=== PATIENT | male | born 1965 | race Caucasian/White ===

== ENCOUNTER 2016-11-09 15:30 | Inpatient (IN) | payer OTHER, MEDICARE ==
[~2016-11-09] VITALS: Ht 177.8 cm; Wt 51.9 kg
--- NOTE | 2016-11-09 15:38 | NUR ---
PER PT FELL IN PARKING LOT LOST BALANCE AND NOW CO L HIP PAIN, DO NOT FEEL LIKE MY LEG WILL HOLD ME. HX OF BRAIN ANEURSYM L LEG WEARS BRACE AND WEAK L ARM
--- NOTE | 2016-11-09 17:15 | ED UPPER/LOWER EXTREMITY COMPL ---
History of Present Illness General Chief Complaint: Lower Extremity Problems Stated Complaint: FALL, LEFT LEG PAIN PER PT Source: patient Exam Limitations: no limitations Vital Signs & Intake/Output Vital Signs & Intake/Output Vital Signs Date Time Temp Pulse Resp B/P Pulse O2 O2 Flow FiO2 Ox Delivery Rate 11/09 1859 94.2 87 20 107/60 94 Room Air 11/09 1539 97.7 81 20 109/76 96 Room Air Allergies Coded Allergies: Penicillins (RASH 11/09/16) carbamazepine (From TEGRETOL) (HIVES 11/09/16) phenytoin (From DILANTIN) (HIVES 11/09/16) Reconcile Medications Cholecalciferol (Vitamin D3) (Vitamin D) (Unknown Strength) TABLET (Unknown Dose) PO DAILY SUPPLEMENT (Reported) Disulfiram (Unknown Strength) TABLET (Unknown Dose) UNKNOWN (Reported) Paroxetine HCl 20 MG TABLET 1 TAB PO DAILY MENTAL HEALTH (Reported) Primidone 250 MG TABLET 1 TAB PO BID SEIZURES (Reported) Simvastatin (Simvastatin*) 40 MG TABLET 1 TAB PO QPM CHOLESTEROL (Reported) Triage Note: PER PT FELL IN PARKING LOT LOST BALANCE AND NOW CO L HIP PAIN, DO NOT FEEL LIKE MY LEG WILL HOLD ME. HX OF BRAIN ANEURSYM L LEG WEARS BRACE AND WEAK L ARM Triage Nurses Notes Reviewed? yes Onset: Abrupt Duration: constant Timing: single episode today Severity: severe Severity Numbers: 8 HPI: Patient is a 51-year-old male with a past medical history of known brain aneurysm with left-sided lower extremity dysfunction, hypertension and left hip fracture with hardware placement that was removed remotely in which patient does use a left lower leg brace when he wakes up in the morning and states that when he wakes up in the morning he uses a cane at home however usually the patient walks without assistance. Patient does state then occasion his leg becomes unstable due to intermittent pain where he is a patient at pain management who states that today while ambulating outside his leg "gave out" and felt the left lateral aspect of his hip and leg. Patient states that since he's been unable to ambulate due to pain. Denies any preceding episodes of lightheaded sensation or dizziness. Denies any head strike. Denies any neck pain back pain abdominal pain knee pain and is otherwise without complaints. No medications given prior to arrival. (MARIELLA CASTILLO,TERESA) Past History Travel History Traveled to [place] past 21 day No Medical History Any Pertinent Medical History? 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 No (TERESA HOLLIS) Review of Systems Review of Systems Constitutional: Reports: no symptoms. EENTM: Reports: no symptoms. Respiratory: Reports: no symptoms. Cardiovascular: Reports: no symptoms. Gastrointestinal/Abdominal: Reports: no symptoms. Genitourinary: Reports: no symptoms. Musculoskeletal: Reports: see HPI, joint pain. Skin: Reports: no symptoms. Neurological/Psychological: Reports: no symptoms. Hematologic/Endocrine: Reports: no symptoms. Immunological: Reports: no symptoms. All Other Systems: Reviewed and Negative (TERESA HOLILS) Physical Exam Physical Exam General Appearance: no apparent distress, alert, comfortable Peripheral Pulses: 2+ dorsalis pedis (R), 2+ dorsalis pedis (L) Neurologic/Tendon: normal sensation, responds to pain, no evidence tendon injury , no pulse deficit Skin: intact, normal color, warm/dry Comments: Well-developed well-nourished person in no acute distress HEENT: Normal EENT exam, Neck: Supple, no lymphadenopathy, normal range of motion without pain or tenderness No central spinous tenderness Back: Nontender, no CVA tenderness. No central spinous tenderness Cardiovascular: Regular rate and rhythms no murmurs rubs or gallops, normal JVP Respiratory: Chest nontender. No respiratory distress.breath sounds clear to auscultation bilaterally Abdomen: Soft, nontender nondistended, no appreciable organomegaly. Normal bowel sounds. No ascites Extremity: No edema, no calf tenderness to palpation, normal and equal pulses. Left hip normal inspection, generalized point tenderness noted, patient unable to actively straight leg raise. Left knee nontender normal inspection Left lower extremity dermatomes intact Neuro: Alert oriented x3, motor sensory normal, Skin: No appreciable rash on exposed skin, skin is warm and dry. Psych: Mood and affect is normal, memory and judgment is normal. (TERESA HOLLIS) Progress Differential Diagnosis: arterial insufficiency, compartment syndrome, contusion, dislocation, DVT, fracture, gout, septic arthritis, sprain, tendon injury Plan of Care: Orders Procedure Date/time Status Regular Diet 11/10 B Active Patient Data 11/09 2116 Active OXYGEN SETUP (GEN) 11/09 1958 Active Saline Lock 11/09 1958 Active Admit to inpatient 11/09 1958 Active Vital Signs 11/09 1958 Active Activity/Ambulation 11/09 1958 Active Code Status 11/09 1958 Active COMPREHENSIVE METABOLIC PANEL 11/09 1944 Complete CBC WITHOUT DIFFERENTIAL 11/09 1944 Complete EKG 11/09 1944 Active Laboratory Tests 11/09/16 2020: Anion Gap 8, Estimated GFR > 60, BUN/Creatinine Ratio 33.3 H, Glucose 102 H, Calcium 9.4, Total Bilirubin 0.6, AST 27, ALT 45, Alkaline Phosphatase 103, Total Protein 6.9, Albumin 3.9, Globulin 3.0, Albumin/Globulin Ratio 1.3, CBC w Diff NO MAN DIFF REQ, RBC 3.90 L, MCV 95.3 H, MCH 31.8 H, RDW 14.9 H, MPV 7.3 L, Gran % 78.0 H, Lymphocytes % 15.5 L, Monocytes % 5.4, Eosinophils % 0.8, Basophils % 0.3, Absolute Granulocytes 12.1 H, Absolute Lymphocytes 2.4, Absolute Monocytes 0.8 H, Absolute Eosinophils 0.1, Absolute Basophils 0.1, PUBS MCHC 33.4 Patient declines pain medications when offered\\ Patient was unable to move leg while in a seated position however he declined pain medications. After x-rays resulted in significant degeneration with no acute process patient then was given a Percocet for pain relief however still patient is unable to weight-bear because of significant left hip pain. Patient does have significant fall risk and which usually he ambulates with minimal assistance and now patient can not weight bear. Chest patient with case management who advised patient to obtain blood work and routine EKG in which patient will likely receive a three-day stay and most likely receive a short-term rehabilitation care. Discussed handoff with Dr. LLANOS (TERESA HOLLIS) Diagnostic Imaging: Viewed by Me: Radiology Read. Radiology Impression: no fracture Hand-Off Endorsed To: JONY LLANOS MD Endorsed Time: 1954 Pending: consult, labs Comments: PATIENT: PATUZZI,ISABELLA C III PRESENT AGE: 51 PATIENT ACCOUNT NO: [id number] : 65 LOCATION: [facility] ORDERING PHYSICIAN: TERESA CASTILLO SERVICE DATE: 11/09/16 EXAM TYPE: RAD - XRY-FEMUR, LEFT 2 VIEWS EXAMINATION: XR FEMUR, LEFT CLINICAL INFORMATION: Left hip and lateral mid femur pain. COMPARISON: None TECHNIQUE: AP and lateral views of the left femur were obtained. FINDINGS: No acute fracture or dislocation. There is a chronic deformity at the left hip with severe flattening and deformity of the left femoral head. There is superior subluxation of the femur in relation to the acetabulum with subchondral sclerosis both at the remaining femoral head and superior acetabulum. There is loss of the joint space. Probable intra-articular bodies present. Alignment at the knee is maintained. Stool seen in the rectum. IMPRESSION: No fracture or acute malalignment. Severe degenerative changes at the left hip with deformity of the left femoral head and superior subluxation. (TERESA HOLLIS) Departure Departure Disposition: STILL A PATIENT Condition: Stable Referrals: IVETTE LARA,JORGE Esparza (PCP/Family) Departure Forms: Customer Survey General Discharge Information Admission Note Documentation of Exam: Documentation of any treatments & extenuating circumstances including Concerns Regarding Discharge (functional status, medication knowledge or non-compliance, living conditions, etc.) that warrant an admission rather than observation: ] (TERESA HOLLIS) Departure Clinical Impression Primary Impression: Fall Qualifiers: Encounter type: initial encounter Qualified Code: W19.XXXA - Unspecified fall, initial encounter Secondary Impressions: Acute hyponatremia Inability to ambulate due to hip Left hip pain Leukocytosis Qualifiers: Leukocytosis type: unspecified Qualified Code: D72.829 - Elevated white blood cell count, unspecified Admission Note Spoke With: JORGE STEELE MD PA/[employer]PRODU[employer] MAKER Co-Sign Statement Statement: ED Attending supervision documentation- x I saw and evaluated the patient. I have also reviewed all the pertinent lab results and diagnostic results. I agree with the findings and the plan of care as documented in the PA's/[employer]PRODU[employer] MAKER's documentation. [] I have reviewed the ED Record and agree with the PA's/[employer]PRODU[employer] MAKER's documentation. [] Additions or exceptions (if any) to the PAs/[employer]PRODU[employer] MAKER's note and plan are summarized below: [] (HIPONA MD,JONY)
--- NOTE | 2016-11-09 17:47 | RADIOLOGY REPORT ---
EXAMINATION: XR FEMUR, LEFT CLINICAL INFORMATION: Left hip and lateral mid femur pain. COMPARISON: None TECHNIQUE: AP and lateral views of the left femur were obtained. FINDINGS: No acute fracture or dislocation. There is a chronic deformity at the left hip with severe flattening and deformity of the left femoral head. There is superior subluxation of the femur in relation to the acetabulum with subchondral sclerosis both at the remaining femoral head and superior acetabulum. There is loss of the joint space. Probable intra-articular bodies present. Alignment at the knee is maintained. Stool seen in the rectum. IMPRESSION: No fracture or acute malalignment. Severe degenerative changes at the left hip with deformity of the left femoral head and superior subluxation.
--- NOTE | 2016-11-09 17:49 | NUR ---
PT RESTING ON STRETCHER AT THIS TIME.
--- NOTE | 2016-11-09 18:50 | NUR ---
PER PA PT TO AMBULATE WITH WALKER AND THEN BE DISCHARGED, PT ONLY HAS 1 ARM AND IS UNABLE TO AMBULATE WITH WALKER. PT USES CANE AT HOME, FAMILY WENT TO CAR TO GRAB PTS CANE SO THAT HE CAN TRY TO AMBULATE
[2016-11-09] MEDS ORDERED: SIMVASTATIN40 M1 PO (19:13)
[2016-11-09] MEDS ORDERED: PAROXETINE HCL20 M1 PO (19:13)
[2016-11-09] MEDS ORDERED: PRIMIDONE250 M1 PO (19:13)
[2016-11-09] MEDS ORDERED: VITAMIN D2000 UNI1 PO (19:14)
[2016-11-09] MEDS ORDERED: DISULFIRAM250 M1 (19:14)
--- NOTE | 2016-11-09 19:21 | NUR ---
PT MEDICATED WITH PERCOCET PER EMAR.
--- NOTE | 2016-11-09 20:22 | NUR ---
PT ,BLOOD SENT TO THE LAB SST,LAV DONE BY GRETA
[2016-11-09 20:32] LABS: ABSOLUTE BASOPHIL COUNT 0.1 /CUMM (0.0-0.2); ABSOLUTE EOSINOPHIL COUNT 0.1 /CUMM (0.0-0.7); ABSOLUTE GRANULOCYTE CT 12.1 /CUMM (1.4-6.5); ABSOLUTE LYMPH COUNT 2.4 /CUMM (1.2-3.4); ABSOLUTE MONOCYTE COUNT 0.8 /CUMM (0.10-0.60); BASOPHIL % 0.3 % (0.0-2.0); EOSINOPHIL % 0.8 % (0-5); HEMATOCRIT 37.2 % (42-52); MEAN CORPUSCULAR HGB 31.8 PG (27.0-31.0); MEAN CORPUSCULAR HGB CONC 33.4 G/DL (33.0-37.0); MEAN CORPUSCULAR VOLUME 95.3 FL (80.0-94.0); MEAN PLATELET VOLUME 7.3 FL (7.4-10.4); PLATELET COUNT 261 /CUMM (130-400); RBC DISTRIBUTION WIDTH 14.9 % (11.5-14.5); WHITE BLOOD CELL COUNT 15.5 /CUMM (4.8-10.8)
--- NOTE | 2016-11-09 21:03 | NUR ---
PT SITTING IN WHEELCHAIR IN [place]. DENIES ANY COMPLAINTS. AWAITING ADMISSION. PT PREFERS TO BE IN WHEELCHAIR DESPITE STRECHER NEXT TO HIM
--- NOTE | 2016-11-09 21:52 | NUR ---
HOUSE STAFF AT BEDSIDE
--- NOTE | 2016-11-09 22:14 | NUR ---
PT BED ASSIGNMENT 219-1
--- NOTE | 2016-11-09 22:20 | NUR ---
REPORT GIVEN TO ROSY ELLIS.
--- NOTE | 2016-11-09 22:22 | History & Physical ---
BRIANNE DUBOSE 11/09/16 2222: General Information and HPI MD Statement: I have seen and personally examined ISABELLA SUMMERS III and documented this H&P. The patient is a 51 year old M who presented with a patient stated chief complaint of fall. Source of Information: patient, family Exam Limitations: no limitations History of Present Illness: Patient is a 51-year-old male with a past medical history of known brain aneurysm with left-sided lower extremity dysfunction, hypertension, multiple scalp and brain surgeries and left hip fracture with hardware placement that was removed remotely in which patient does use a left lower leg brace came to the emergency department this evening after mechanical fall. Patient reports fall in parking lot after losing balance. He now complains left hip pain, 10 out of 10, sharp and shooting, nonradiating. Not associated with any weakness, new sensory changes, numbness or tingling sensation. Patient does state occasionally his leg becomes unstable due to intermittent pain. He States that today while ambulating outside his leg "gave out" and fell on left lateral aspect of his hip and leg. Patient states that since he is unable to ambulate due to pain. Denies any preceding episodes of lightheaded sensation or dizziness or syncopal episodes. Denies any head ache. Denies any neck pain, back pain and abdominal pain, knee pain and is otherwise without complaints. No seizures. Denied any fever, chills, chest pain, racing of heart, headache, numbness or tingling sensation, weakness or sensory changes, short of breath, nausea, vomiting, abdominal pain, change in bladder or bowel habits. Allergies/Medications Allergies: Coded Allergies: Penicillins (RASH 11/09/16) carbamazepine (From TEGRETOL) (HIVES 11/09/16) phenytoin (From DILANTIN) (HIVES 11/09/16) Home Med list Disulfiram (Antabuse) 250 MG TABLET 1 TAB PO DAILY ETOH dependence (Reported) Paroxetine HCl 20 MG TABLET 1 TAB PO DAILY MENTAL HEALTH (Reported) Pravastatin Sodium (Pravachol) 40 MG TABLET 1 TAB PO DAILY Dyslipidemia ( Reported) Primidone 250 MG TABLET 1 TAB PO BID SEIZURES (Reported) Compliance With Home Meds: GOOD Past History Travel History Traveled to [place] past 21 day No Medical History Neurological: ANUERSYM BRAIN EENT: NONE Cardiovascular: hypertension Respiratory: NONE Gastrointestinal: NONE Hepatic: NONE Renal: NONE Musculoskeletal: NONE Psychiatric: NONE Endocrine: NONE Blood Disorders: NONE Cancer(s): NONE 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 EENTM: Denies: no symptoms. Cardiovascular: Denies: chest pain, edema, palpitations, peripheral edema. Respiratory: Denies: cough, short of breath, sputum production, stridor, wheezing. GI: Denies: abdominal pain, constipation, diarrhea, nausea, bloody stool. Genitourinary: Denies: dysuria, frequency, hematuria, hesitation. Musculoskeletal: Denies: back pain, joint pain, joint swelling. Skin: Denies: no symptoms. Neurological/Psychological: Denies: anxiety, ataxia, cognitive dysfunction, confusion, depressed, dementia, emotional problems, headache, numbness, tingling, tremors, weakness. Exam & Diagnostic Data Last 24 Hrs of Vital Signs/I&O Vital Signs Date Time Temp Pulse Resp B/P Pulse O2 O2 Flow FiO2 Ox Delivery Rate 11/10 0033 98.2 91 18 95/59 98 Room Air 11/09 2214 96.9 11/09 1859 94.2 87 20 107/60 94 Room Air 11/09 1539 97.7 81 20 109/76 96 Room Air Intake & Output 11/10 0800 11/10 0000 11/09 1600 Intake Total 0 Output Total Balance 0 Intake, Oral 0 Patient 51.936 kg 72.575 kg Weight Physical Exam General Appearance Alert, Oriented X3, Cooperative, No Acute Distress Skin No Rashes, No Breakdown HEENT Atraumatic, PERRLA, EOMI, Mucous Membr. moist/pink Neck Supple, No JVD, No thryomegaly Lymphatic Axillary nl, Cervical nl Cardiovascular Regular Rate, Normal S1, Normal S2, No Murmurs Lungs Clear to Auscultation, Normal Air Movement Abdomen Normal Bowel Sounds, Soft, No Tenderness, No Hepatospenomegaly Neurological Normal Speech, Normal Tone, left lower extremity strength 3/5 and sensory changes Extremities No Clubbing, No Cyanosis, No Edema, Normal Pulses Vascular Normal Pulses Diagnostic Data EKG Results Rate 77, QTC 48, no acute ST-T wave changes, borderline T-wave abnormalities. T -wave inversions in V1 and V2 V4 Assessment/Plan Assessment: Patient is a 51-year-old male with a past medical history of known brain aneurysm with left-sided lower extremity dysfunction, hypertension, multiple scalp and brain surgeries and left hip fracture with hardware placement that was removed remotely in which patient does use a left lower leg brace came to the emergency department this evening after mechanical fall. Vital signs on admission: Temperature 97.7, pulse rate 81, respiratory rate 20, blood pressure 109/76, oxygen saturation 96% on room air. Patient had temperature of 94.2 at some point in the ED without any other complaints or symptoms, repeat temperature was 96.9. Pertinent lab on admission: WBC 15.5, platelet 261, hemoglobin 12.4, hematocrit 37.2. Sodium 130, creatinine 0.6, glucose 102, alkaline phosphatase 103, AST 27 , ALT 45, troponin negative. X-ray of femur was negative for any fracture or acute malalignment. Severe degenerative changes at the left hip with deformity of the left femoral head and superior subluxation. EKG showed accelerated junctional rhythm, rate 77, T inversion in V1, V2, V4 and V6 no EKG available in records to compare. Problem list 1. Left hip pain status post a mechanical fall 2. Abnormal EKG 3. Leukocytosis 4. Alcohol dependence 5. Hypertension 6. Seizures 7. Depression 8. Hyperlipidemia. Left hip pain status post mechanical fall Patient has past history significant for left hip fracture with hardware placement that was removed remotely in which patient does use a left lower leg brace came to the emergency department this evening after mechanical fall. Having 8 out of 10 hip pain. Relieved with pain medication in the emergency room. on exam - decreased strength in left upper and lower extremity (3 over 5). Limited activity range of motion in left upper and lower extremity which is not changed from baseline as per patient and patient's father. Normal passive range of motion in left upper and lower extremity. Normal external and internal rotation of the left hip. No tenderness on palpation and hip joint or buttocks no sign of ecchymosis/ ulcers/swelling. Normal range of motion right side. Decreased sensation left upper and lower extremity. Intact sensation right upper and lower extremity. Reflexes normal and symmetrical. Gait not assessed as patient had pain upon standing up. * Admitted to general medical floor for further management and rehabilitation placement * Monitor vitals closely * Maintain oxygen saturation above 96% * Fall precaution * X-ray negative for any fracture, will control the pain with when necessary Tylenol and Percocet. * PT evaluation * Ortho consult * Pain management * Mild to moderate pain Tylenol * Severe pain Percocet Leukocytosis Most likely reactive Will check CBC in the morning Abnormal EKG Denies any chest pain Troponin negative Repeat EKG in the morning Cardio consult Alcohol dependence Continue with the disulfiram Seizures Patient takes primidone at home Continue home medication Depression Continue home dose of paroxetine Hyperlipidemia Continue statins DVT prophylaxis - Full code Regular diet Moderate to severe pain pathway Tylenol and oxycodone As Ranked By This Provider Problem List: 1. Fall Qualifiers Encounter type: initial encounter Qualified Code: W19.XXXA - Unspecified fall, initial encounter 2. Left hip pain 3. Inability to ambulate due to hip 4. Leukocytosis Qualifiers Leukocytosis type: unspecified Qualified Code: D72.829 - Elevated white blood cell count, unspecified 5. Acute hyponatremia Core Measures/Miscellaneous Acute Coronary Syndrome ACS Diagnosis: No Cerebrovascular Accident CVA/TIA Diagnosis: No Congestive Heart Failure CHF Diagnosis: No Venous Thromboembolism VTE Risk Factors: Age > 40, Surgery, Trauma major or lower ext [facility] prophylaxis d/t: No contraindications No VTE Pharm Prophylaxis d/t: No contraindications VTE Diagnosis: No VTE Type: NONE VTE Confirmed by (Test): NONE Severe Sepsis Severe Sepsis Present: No Septic Shock Septic Shock Present: No Miscellaneous Documentation Attending Case Discussed With: RADHA HURST MD Primary Care Physician: JORGE STEELE MD Patient sees these Specialists none Level of Patient Care: General Medicine SALAZAR DYKES 11/09/16 2225: Resident Review Statement Resident Statement: examined this patient, discussed with sales management intern, discussed with family, reviewed EMR data (avail), reviewed images, amended to note Other Findings: This is a 51-year-old gentleman with past medical history significant for hypertension, brain aneurysm , traumatic brain injury, left-sided weakness and decreased sensation at baseline, history of left hip fracture with hardware placement;now walks with left lower leg brace who presents to the hospital after a fall. Per patient, he fell while he was walking in the parking lot this afternoon , he felt that his "leg gave out" he landed on his left hip, Patient denies any loss of consciousness or trauma to his head. Please see above for more details. Vital signs on admission: Temperature 97.7, pulse rate 81, respiratory rate 20, blood pressure 109/76, oxygen saturation 96% on room air. Patient had temperature of 94.2 at some point in the ED without any other complaints or symptoms, repeat temperature was 96.9. Physical exam at the time of admission: AAO3, NAD. HEENT: HNCAT, PERRLA, EOMI, moist mucous membrane. Neck: Supple, no JVD, no lymphadenopathy. CV: RRR, no murmur. Lungs: CTA BL. Abdomen: Normal bowel sounds, soft, NT, ND. Neurology exam: AAO 3, Cranial nerve III-12 intact, decreased strength in left upper and lower extremity (3 over 5). Limited activity range of motion in left upper and lower extremity which is not changed from baseline as per patient and patient's father. Normal passive range of motion in left upper and lower extremity. Normal external and internal rotation of the left hip. No tenderness on palpation and hip joint or buttocks no sign of ecchymosis/ ulcers/swelling. Normal range of motion right side. Decreased sensation left upper and lower extremity. Intact sensation right upper and lower extremity. Reflexes normal and symmetrical. Gait not assessed as patient had pain upon standing up. Extremities: No edema, pulses normal and symmetrical. Skin: No ecchymosis or ulcers. Pertinent lab on admission: WBC 15.5, platelet 261, hemoglobin 12.4, hematocrit 37.2. Sodium 130, creatinine 0.6, glucose 102, alkaline phosphatase 103, AST 27 , ALT 45, troponin negative. X-ray of femur was negative for any fracture or acute malalignment. Severe degenerative changes at the left hip with deformity of the left femoral head and superior subluxation. EKG showed accelerated junctional rhythm, rate 77, T inversion in V1, V2, V4 and V6 no EKG available in records to compare. Problems list/Plan: #left hip pain status post mechanical fall * X-ray negative for any fracture, will control the pain with when necessary Tylenol and Percocet. * PT evaluation * Ortho consult #Abnormal EKG; negative troponin negative chest pain * Will repeat EKG in the morning. 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 # Patient is full code #Case was discussed with attending, Dr. Steele agrees with the above plan. ARIS LARA,[facility] 11/10/16 0951: Attending Review Statement Attending Statement Attending MD Statement: examined this patient, discuss w/resident/PA/THREAD SPINNER, agreed w/resident/PA/THREAD SPINNER, reviewed EMR data (avail)
[2016-11-09] MEDS ORDERED: PRAVACHOL20 M2 PO (22:33)
[2016-11-09] MEDS ORDERED: ANTABUSE250 M1 PO (22:33)
[2016-11-09] MEDS ORDERED: PRAVACHOL40 M1 PO (22:34)
[2016-11-10 00:33] VITALS: BP 95/59
--- NOTE | 2016-11-10 00:42 | NUR ---
2300 PT ARRIVED FROM ER VIA WHEELCHAIR, AMBULATED TO BED WITH ASSISTANCE. PT WEARING OWN CLOTHES, STATES HE DOES NOT WANT TO CHANGE. PT DENIES SKIN BREAKDOWN, NO SKIN BREAKDOWN NOTED BY THIS RN WHEN PULLING PANTS, SLEEVES, ETC OUT OF WAY. PT C/O PAIN TO IV SITE TO LT HAND R/T SPASMS. IV REMOVED, PT REFUSING NEW IV AT THIS TIME. 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 BED ALARM IN PLACE, FALL BRACELET, RED SOCKS AND FALLING LEAF IN USE. PT EDUCATED TO REASON FOR PREVENTIONS, VERBALIZES UNDERSTANDING. WILL CONTINUE TO MONITOR.
--- NOTE | 2016-11-10 07:20 | PN- Housestaff ---
Subjective Follow-up For: left hip discomfort post a mechanical fall. left-sided weakness 2/2 brain aneurysm Subjective: Afebrile, alert and oriented, complaining of left hip pain. No acute overnight events reported. Patient father was in his bed side. Patient denies any other current complaints. Review of Systems Constitutional: Reports: see HPI. Objective Last 24 Hrs of Vital Signs/I&O Vital Signs Date Time Temp Pulse Resp B/P Pulse O2 O2 Flow FiO2 Ox Delivery Rate 11/10 1349 98.7 94 20 126/70 95 Room Air 11/10 1044 Room Air Room Air 11/10 0747 98.4 88 20 99/71 93 Room Air 11/10 0033 98.2 91 18 95/59 98 Room Air 11/09 2214 96.9 11/09 1859 94.2 87 20 107/60 94 Room Air Intake & Output 11/10 1600 11/10 0800 11/10 0000 Intake Total 0 Output Total 850 Balance -850 0 Intake, Oral 0 Output, Urine 850 Patient 51.936 kg Weight Physical Exam General Appearance: Alert, Cooperative, No Acute Distress Skin: No Rashes, No Breakdown, No Significant Lesion HEENT: Atraumatic, PERRLA, EOMI, Mucous Membr. moist/pink Cardiovascular: Regular Rate, Normal S1, Normal S2, No Murmurs Lungs: Clear to Auscultation, Normal Air Movement Abdomen: Normal Bowel Sounds, Soft, No Tenderness Neurological: Normal Speech, strength is 5/5 on the right side, but 3/5 on the left side Extremities: No Clubbing, No Cyanosis, No Edema Current Medications: Current Medications Sig/Samm Start time Last Medication Dose Route Stop Time Status Admin Acetaminophen 650 MG Q8P PRN 11/09 2230 AC PO Disulfiram 250 MG DAILY 11/10 1000 AC 11/10 PO 1042 Oxycodone/ 1 TAB Q6 PRN 11/09 223 AC 11/10 Acetaminophen PO 1343 Oxycodone/ 0 .STK-MED ONE 11/09 190 DC Acetaminophen PO Oxycodone/ 1 TAB ONCE ONE 11/09 1900 DC 11/09 Acetaminophen PO 11/09 190 1919 Paroxetine HCl 20 MG DAILY 11/10 1000 AC 11/10 PO 1041 Patient Medication 1 ED .STK-MED ONE 11/10 1339 DC Teaching ED 11/10 1340 Pravastatin Sodium 40 MG 1700 11/10 1700 AC 11/10 PO 1729 Primidone 250 MG BID 11/09 2330 AC 11/10 PO 1042 Last 24 Hrs of Lab/Toby Results Last 24 Hrs of Labs/Mics: Laboratory Tests 11/10/16 0758: Anion Gap 5, Estimated GFR > 60, BUN/Creatinine Ratio 25.0, CBC w Diff NO MAN DIFF REQ, RBC 3.81 L, MCV 95.8 H, MCH 32.0 H, RDW 14.9 H, MPV 7.3 L, Gran % 61.0, Lymphocytes % 26.4, Monocytes % 9.3, Eosinophils % 2.6, Basophils % 0.7, Absolute Granulocytes 4.8, Absolute Lymphocytes 2.1, Absolute Monocytes 0.7 H, Absolute Eosinophils 0.2, Absolute Basophils 0.1, PUBS MCHC 33.4 11/09/16 2020: Anion Gap 8, Estimated GFR > 60, BUN/Creatinine Ratio 33.3 H, Glucose 102 H, Calcium 9.4, Total Bilirubin 0.6, AST 27, ALT 45, Alkaline Phosphatase 103, Troponin I < 0.01, Total Protein 6.9, Albumin 3.9, Globulin 3.0, Albumin/ Globulin Ratio 1.3, CBC w Diff NO MAN DIFF REQ, RBC 3.90 L, MCV 95.3 H, MCH 31.8 H, RDW 14.9 H, MPV 7.3 L, Gran % 78.0 H, Lymphocytes % 15.5 L, Monocytes % 5.4, Eosinophils % 0.8, Basophils % 0.3, Absolute Granulocytes 12.1 H, Absolute Lymphocytes 2.4, Absolute Monocytes 0.8 H, Absolute Eosinophils 0.1 , Absolute Basophils 0.1, PUBS MCHC 33.4 Assessment/Plan Assessment: This is a 55-year-old male with a history of brain aneurysm with the left side nabil-plegia, hypertension. He also has a history of left hip fracture status post surgical intervention. Presented because of left sided hip pain post a mechanical fall. X-ray was negative for any fractures. * 1 tablet every 6 when necessary when necessary * Acetaminophen 650 mg every 8 when necessary * PT evaluation * Continue home medication include statin, Paxil, disulfiram and primidone. Regular diet Full code Problem List: 1. Fall 2. Left hip pain 3. Leukocytosis Pain Ratin Pain Location: left hip Pain Goal: Remain pain free Pain Plan: See assessment and plan Tomorrow's Labs & Rationales: CBC and BEP
[2016-11-10 07:47] VITALS: BP 99/71
[2016-11-10 08:48] LABS: ABSOLUTE BASOPHIL COUNT 0.1 /CUMM (0.0-0.2); ABSOLUTE EOSINOPHIL COUNT 0.2 /CUMM (0.0-0.7); ABSOLUTE GRANULOCYTE CT 4.8 /CUMM (1.4-6.5); ABSOLUTE LYMPH COUNT 2.1 /CUMM (1.2-3.4); ABSOLUTE MONOCYTE COUNT 0.7 /CUMM (0.10-0.60); BASOPHIL % 0.7 % (0.0-2.0); EOSINOPHIL % 2.6 % (0-5); HEMATOCRIT 36.5 % (42-52); MEAN CORPUSCULAR HGB CONC 33.4 G/DL (33.0-37.0); MEAN CORPUSCULAR VOLUME 95.8 FL (80.0-94.0); MEAN PLATELET VOLUME 7.3 FL (7.4-10.4); PLATELET COUNT 250 /CUMM (130-400); RBC DISTRIBUTION WIDTH 14.9 % (11.5-14.5); RED BLOOD CELL CT 3.81 /CUMM (4.70-6.10); WHITE BLOOD CELL COUNT 7.8 /CUMM (4.8-10.8)
--- NOTE | 2016-11-10 09:47 | Admission Certification ---
Admission Certification Certification Statement - As attending physician, I certify that at the time of - admission, based on clinical presentation, severity of - symptoms, need for further diagnostic testing and - therapeutic interventions, and risk of adverse outcomes - without in-hospital treatment, in my clinical assessment, - this patient requires an acute hospital stay for a minimum - of two nights or longer. I have also considered psychsocial - factors such as support system, advanced age, financial - issues, cognitive issues, and failed out-patient treatments, - past re-admission history, safety of patient, and lack of - compliance as applicable. Specific rationale supporting this admission is: Mechanical fall and left hip pain
--- NOTE | 2016-11-10 09:51 | PN- Att Addend ---
Attending Addendum Attending Brief Note Patient complains of left hip discomfort and left-sided weakness that is chronic General Appearance: Alert, No Acute Distress Skin: Grossly normal HEENT: PEERLA Neck: Supple, No JVD Cardiovascular: Regular Rate, Normal S1, Normal S2, No Murmurs Lungs: Clear to Auscultation, Normal Air Movement Abdomen: Normal Bowel Sounds, Soft, No Tenderness Neurological: Left-sided weakness Extremities: No Clubbing, No Cyanosis, No Edema Vascular: Normal Pulses Assessment 51-year-old with history of brain aneurysm with left-sided weakness, hypertension and history of left hip fracture with surgery presenting after a mechanical fall. X-ray negative for fracture, except for subluxation. Conservative treatment with pain meds and physical therapy for possible placement to rehabilitation. EKG reviewed and was within normal limits. Plan Continue pain meds Continue home meds No need for cardiology evaluation PT evaluation DVT prophylaxis Current Medications Sig/Samm Start time Last Medication Dose Route Stop Time Status Admin Acetaminophen 650 MG Q8P PRN 11/09 2230 AC PO Disulfiram 250 MG DAILY 11/10 1000 AC PO Oxycodone/ 1 TAB Q6 PRN 11/09 2230 AC 11/10 Acetaminophen PO 0002 Oxycodone/ 0 .STK-MED ONE 11/09 1907 DC Acetaminophen PO Oxycodone/ 1 TAB ONCE ONE 11/09 190 DC 11/09 Acetaminophen PO 11/09 1901 1919 Paroxetine HCl 20 MG DAILY 11/10 1000 AC PO Pravastatin Sodium 40 MG 1700 11/10 1700 AC PO Primidone 250 MG BID 11/09 2330 AC 11/10 PO 0020 Laboratory Tests 11/10 Chemistry Sodium (137 - 145 mmol/L) 134 L 130 L Potassium (3.5 - 5.1 mmol/L) 4.5 4.3 Chloride (98 - 107 mmol/L) 103 98 Carbon Dioxide (22 - 30 mmol/L) 26 24 Anion Gap (5 - 16) 5 8 BUN (9 - 20 mg/dL) 15 20 Creatinine (0.7 - 1.2 mg/dL) 0.6 L 0.6 L Estimated GFR (>60 ml/min) > 60 > 60 BUN/Creatinine Ratio (7 - 25 %) 25.0 33.3 H Glucose (65 - 99 mg/dL) 102 H Calcium (8.4 - 10.2 mg/dL) 9.4 Total Bilirubin (0.2 - 1.3 mg/dL) 0.6 AST (17 - 59 U/L) 27 ALT (21 - 72 U/L) 45 Alkaline Phosphatase (< 127 U/L) 103 Troponin I (<0.11 ng/ml) < 0.01 Total Protein (6.3 - 8.2 g/dL) 6.9 Albumin (3.5 - 5.0 g/dL) 3.9 Globulin (1.9 - 4.2 gm/dL) 3.0 Albumin/Globulin Ratio (1.1 - 2.2 %) 1.3 Hematology CBC w Diff NO MAN DIFF REQ NO MAN DIFF REQ WBC (4.8 - 10.8 /CUMM) 7.8 15.5 H RBC (4.70 - 6.10 /CUMM) 3.81 L 3.90 L Hgb (14.0 - 18.0 G/DL) 12.2 L 12.4 L Hct (42 - 52 %) 36.5 L 37.2 L MCV (80.0 - 94.0 FL) 95.8 H 95.3 H MCH (27.0 - 31.0 PG) 32.0 H 31.8 H RDW (11.5 - 14.5 %) 14.9 H 14.9 H Plt Count (130 - 400 /CUMM) 250 261 MPV (7.4 - 10.4 FL) 7.3 L 7.3 L Gran % (42.2 - 75.2 %) 61.0 78.0 H Lymphocytes % (20.5 - 51.1 %) 26.4 15.5 L Monocytes % (1.7 - 9.3 %) 9.3 5.4 Eosinophils % (0 - 5 %) 2.6 0.8 Basophils % (0.0 - 2.0 %) 0.7 0.3 Absolute Granulocytes (1.4 - 6.5 /CUMM) 4.8 12.1 H Absolute Lymphocytes (1.2 - 3.4 /CUMM) 2.1 2.4 Absolute Monocytes (0.10 - 0.60 /CUMM) 0.7 H 0.8 H Absolute Eosinophils (0.0 - 0.7 /CUMM) 0.2 0.1 Absolute Basophils (0.0 - 0.2 /CUMM) 0.1 0.1 PUBS MCHC (33.0 - 37.0 G/DL) 33.4 33.4 Vital Signs Date Time Temp Pulse Resp B/P Pulse O2 O2 Flow FiO2 Ox Delivery Rate 11/10 0747 98.4 88 20 99/71 93 Room Air 11/10 0033 98.2 91 18 95/59 98 Room Air 11/09 2214 96.9 11/09 1859 94.2 87 20 107/60 94 Room Air 11/09 1539 97.7 81 20 109/76 96 Room Air
[2016-11-10 13:49] VITALS: BP 126/70
--- NOTE | 2016-11-10 16:36 | Discharge Summary ---
Visit Information Visit Dates Admission Date: 11/09/16 Discharge Date: 11/13/16 Hospital Course Course Attending Physician: RADHA HURST MD Primary Care Physician: JORGE STEELE MD Hospital Course: Patient is a 51-year-old male with a past medical history of known brain aneurysm with left-sided lower extremity dysfunction, hypertension, multiple scalp and brain surgeries and left hip fracture with hardware placement that was removed remotely in which patient does use a left lower leg brace came to the emergency department this evening after mechanical fall. Patient reports fall in parking lot after losing balance. He now complains left hip pain, 10 out of 10, sharp and shooting, nonradiating. Not associated with any weakness, new sensory changes, numbness or tingling sensation. He was admitted on general medical floor. She was evaluated by orthopedic surgery and according to them he can work with physical therapy to try to get him to ambulate safely he may have to use a platform-type walker just to use the right upper extremity for more balance control he can follow up with orthopedics and in particular Julius Campos MD as an outpatient. Patient will be discharged to short-term rehabilitation where he will work with physical therapy to get his strength back and later on will follow up with Dr. Julius Campos MD as outpatient for future planning of hip replacement. PATIENT COmplained of left wrist discomfort had xrays which showed nondisplaced left distal radius fracture splint applied will maintain for 6 weeks Patient also found to have moderate malnutrition evaluated by portfolio consultant. Patient was found to have hyponatremic on admission that was progressively getting better with conservative management Complications: None Allergies: Coded Allergies: Penicillins (RASH 11/09/16) carbamazepine (From TEGRETOL) (HIVES 11/09/16) phenytoin (From DILANTIN) (HIVES 11/09/16) Pertinent Lab Results: SERVICE DATE: 11/09/16 EXAM TYPE: RAD - XRY-FEMUR, LEFT 2 VIEWS EXAMINATION: XR FEMUR, LEFT CLINICAL INFORMATION: Left hip and lateral mid femur pain. COMPARISON: None TECHNIQUE: AP and lateral views of the left femur were obtained. FINDINGS: No acute fracture or dislocation. There is a chronic deformity at the left hip with severe flattening and deformity of the left femoral head. There is superior subluxation of the femur in relation to the acetabulum with subchondral sclerosis both at the remaining femoral head and superior acetabulum. There is loss of the joint space. Probable intra-articular bodies present. Alignment at the knee is maintained. Stool seen in the rectum. IMPRESSION: No fracture or acute malalignment. Severe degenerative changes at the left hip with deformity of the left femoral head and superior subluxation. Disposition Summary Disposition Principal Diagnosis: Impacted distal radius fracture left hip discomfort post a mechanical fall. Additional Diagnosis: left-sided weakness 2/2 brain aneurysm Discharge Disposition: SNF Discharge Instructions General Discharge Information Code Status: Full Code Patient's Diet: Heart healthy diet Patient's Activity: As tolerated with assistance Follow-Up Instructions/Appts: Please follow-up with your primary care physician in one week of discharge Please follow-up with orthopedic Julius Campos MD as an outpatient after 1-2 weeks of discharge use a platform-type walker just to use the right upper extremity for more balance control Medications at Discharge Discharge Medications: Continue taking these medications: Primidone (Primidone) 250 MG TABLET 1 Tablet ORAL TWICE DAILY Qty = 60 Paroxetine HCl (Paroxetine HCl) 20 MG TABLET 1 Tablet ORAL DAILY Qty = 30 Disulfiram (Antabuse) 250 MG TABLET 1 Tablet ORAL DAILY Pravastatin Sodium (Pravachol) 40 MG TABLET 1 Tablet ORAL DAILY Start taking the following new medications: Oxycodone HCl/Acetaminophen (Percocet 5-325 MG Tablet) 5 MG-325 MG TABLET 1 Tablet ORAL EVERY SIX HOURS NEEDED as needed for PAIN SCALE 4-6 ( MODERATE) Days = 14 No Refills Acetaminophen (Tylenol) 325 MG TABLET 650 Milligram ORAL EVERY 8 HOURS NEEDED as needed for mild/mod pain Qty = 30 No Refills Copies To: IVETTE LARA,JORGE Hill MD Review Statement Documenting Attending: JORGE STEELE MD
[2016-11-10 22:39] VITALS: BP 110/69
[2016-11-11 07:11] VITALS: BP 98/72
[2016-11-11 08:22] LABS: ABSOLUTE BASOPHIL COUNT 0.1 /CUMM (0.0-0.2); ABSOLUTE EOSINOPHIL COUNT 0.2 /CUMM (0.0-0.7); ABSOLUTE GRANULOCYTE CT 4.1 /CUMM (1.4-6.5); ABSOLUTE LYMPH COUNT 2.3 /CUMM (1.2-3.4); ABSOLUTE MONOCYTE COUNT 0.6 /CUMM (0.10-0.60); BASOPHIL % 0.9 % (0.0-2.0); EOSINOPHIL % 2.5 % (0-5); GRANULOCYTE % 56.3 % (42.2-75.2); HEMATOCRIT 34.7 % (42-52); MEAN CORPUSCULAR HGB 31.8 PG (27.0-31.0); MEAN CORPUSCULAR HGB CONC 33.3 G/DL (33.0-37.0); MEAN CORPUSCULAR VOLUME 95.6 FL (80.0-94.0); MEAN PLATELET VOLUME 7.4 FL (7.4-10.4); PLATELET COUNT 252 /CUMM (130-400); RBC DISTRIBUTION WIDTH 14.4 % (11.5-14.5); RED BLOOD CELL CT 3.63 /CUMM (4.70-6.10); WHITE BLOOD CELL COUNT 7.3 /CUMM (4.8-10.8)
--- NOTE | 2016-11-11 08:47 | PN- Housestaff ---
Subjective Follow-up For: significant dysplasia and [id number] arthritic changes of the left hip Mildly impacted fracture of the distal radial metaphysis Complaints: pain in the left forearm and the wrist Subjective: Patient is seen and examined at the bedside. He was complaining of pain in the forearm and the wrist. Review of Systems Constitutional: Reports: weakness. Cardiovascular: Denies: no symptoms. Respiratory: Denies: no symptoms. Musculoskeletal: Reports: joint pain, joint swelling. Skin: Reports: erythema. Neurological/Psychological: Reports: depressed, unable to move lower ext, unable to move upper ext. Objective Last 24 Hrs of Vital Signs/I&O Vital Signs Date Time Temp Pulse Resp B/P Pulse O2 O2 Flow FiO2 Ox Delivery Rate 11/11 1536 97.8 96 20 104/60 95 Room Air 11/11 0711 97.7 88 20 98/72 94 Room Air 11/10 223 99.0 92 20 110/69 95 Room Air Intake & Output 11/11 1600 11/11 0800 11/11 0000 Intake Total 100 300 Output Total 440 1100 400 Balance -440 -1000 -100 Intake, Oral 100 300 Output, Urine 440 1100 400 Patient 51.936 kg Weight Physical Exam General Appearance: Alert, Oriented X3, Cooperative, No Acute Distress Skin: area of swelling and erythema on the left forearm Cardiovascular: Normal S1, Normal S2 Lungs: Clear to Auscultation, Normal Air Movement Abdomen: Soft, No Tenderness Neurological: 3/5 strength in left upper and lower limb Extremities: No Clubbing, No Cyanosis, No Edema Vascular: Normal Pulses Current Medications: Current Medications Sig/Samm Start time Last Medication Dose Route Stop Time Status Admin Acetaminophen 650 MG Q8P PRN 11/09 2230 AC 11/11 PO 1700 Disulfiram 250 MG DAILY 11/10 1000 AC 11/11 PO 1043 Oxycodone/ 1 TAB Q6P PRN 11/11 1100 AC 11/11 Acetaminophen PO 1530 Oxycodone/ 1 TAB Q6 PRN 11/09 2230 DC 11/10 Acetaminophen PO 2047 Paroxetine HCl 20 MG DAILY 11/10 1000 AC 11/11 PO 1042 Pravastatin Sodium 40 MG 1700 11/10 1700 AC 11/11 PO 1656 Primidone 250 MG BID 11/09 2330 AC 11/11 PO 1920 Last 24 Hrs of Lab/Toby Results Last 24 Hrs of Labs/Mics: Laboratory Tests 11/11/16 0640: Anion Gap 7, Estimated GFR > 60, BUN/Creatinine Ratio 21.7, CBC w Diff NO MAN DIFF REQ, RBC 3.63 L, MCV 95.6 H, MCH 31.8 H, RDW 14.4, MPV 7.4, Gran % 56.3, Lymphocytes % 31.7, Monocytes % 8.6, Eosinophils % 2.5, Basophils % 0.9, Absolute Granulocytes 4.1, Absolute Lymphocytes 2.3, Absolute Monocytes 0.6, Absolute Eosinophils 0.2, Absolute Basophils 0.1, PUBS MCHC 33.3 Assessment/Plan Assessment: This is a 55-year-old male with a history of brain aneurysm with the left side nabil-plegia, hypertension. He also has a history of left hip fracture status post surgical intervention. Presented because of left sided hip pain post a mechanical fall. X-ray was negative for any fractures. Plan - significant dysplasia and [id number]-[id number] arthritic changes of the left hip * Patient may need consultation with a joint replacement specialist as an outpatient Mildly impacted fracture of the distal radial metaphysis * He was complaining of pain and swelling in the left forearm and wrist. * We ordered x-ray of forearm and wrist. It showed that he is having mildly impacted fracture of distal radial metaphysis. * We updated Dr. John and he advised to keep the wrist in a splint and he will come and evaluate it tomorrow * We will give pain medication according to the pain score * PT evaluation * Continue home medication include statin, Paxil, disulfiram and primidone. Diet - Regular diet DVT prophylaxis-ALP S/Heparin CODE STATUS -Full code Problem List: 1. Fracture of radius 2. Acquired dysplasia of left hip Pain Ratin Pain Location: Forearm and the wrist Pain Goal: Remain pain free Pain Plan: [id number]-[id number] according to the pain scale Tomorrow's Labs & Rationales: not required DVT/Prophylaxis: mechanical, pharmacological
--- NOTE | 2016-11-11 09:10 | Cons- Orthopedic ---
General Information and HPI Consulting Request Date of Consult: 11/11/16 Requested By: RADHA HURST MD Reason for Consult: Left hip pain History of Present Illness: Patient is a 51-year-old male who is status post a brain aneurysm with weakness on the left side of his body and he has recurrent falls secondary to weakness in the left upper and lower extremity. He had a recent fall and was having some pain in the left hip region. X-rays taken at [facility] in the emergency room do not show any new fractures he has [id number]-ro-[id number] left hip with deformity of the proximal femur from prior hip dysplasia. The patient states on a daily basis he gets up and ambulates for short period of time with a cane due to fact occasionally use his right upper extremity and gets around without a cane most of the rest of the day but has significant weakness on the left side. I had a long discussion with the patient today that he should set up an outpatient appointment with Dr. Cuevas WHO is a joint replacement specialist for the possibility of hip replacement on the left side. Allergies/Medications Allergies: Coded Allergies: Penicillins (RASH 11/09/16) carbamazepine (From TEGRETOL) (HIVES 11/09/16) phenytoin (From DILANTIN) (HIVES 11/09/16) Home Med List: Disulfiram (Antabuse) 250 MG TABLET 1 TAB PO DAILY ETOH dependence (Reported) Paroxetine HCl 20 MG TABLET 1 TAB PO DAILY MENTAL HEALTH (Reported) Pravastatin Sodium (Pravachol) 40 MG TABLET 1 TAB PO DAILY Dyslipidemia ( Reported) Primidone 250 MG TABLET 1 TAB PO BID SEIZURES (Reported) Past History Medical History Neurological: seizure, ANUERSYM BRAIN EENT: NONE Cardiovascular: hypertension Respiratory: NONE Gastrointestinal: NONE Hepatic: NONE Renal: NONE Musculoskeletal: NONE Psychiatric: NONE Endocrine: NONE Blood Disorders: NONE Cancer(s): NONE 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 Home Services at Home: None Smoking Status: Current Everyday Smoker ETOH Use: denies use Illicit Drug Use: denies illicit drug use Review of Systems Review of Systems: Prior ruptured cerebral aneurysm leading to left sided weakness in the upper and lower extremity. Exam & Diagnostic Data Vital Signs and I&O Vital Signs Date Time Temp Pulse Resp B/P Pulse O2 O2 Flow FiO2 Ox Delivery Rate 11/11 0711 97.7 88 20 98/72 94 Room Air 11/10 2239 99.0 92 20 110/69 95 Room Air 11/10 1349 98.7 94 20 126/70 95 Room Air 11/10 1044 Room Air Room Air Intake & Output 11/11 1600 11/11 0800 11/11 0000 11/10 1600 11/10 0800 11/10 0000 Intake Total 100 300 700 0 Output Total 1100 400 850 Balance -1000 -100 700 -850 0 Intake, Oral 100 300 700 0 Output, Urine 1100 400 850 Patient 114 lb 114 lb Weight Physical Exam: On physical exam he has about 0 to about 80 of motion at the left hip rotation is decreased secondary to the arthritic nature of his left hip. With me moving his hip through a range of motion and has very limited pain today so again proving that there is no acute new fracture. Assessment/Plan Assessment/Plan Patient is a 51-year-old male with significant dysplasia and yuyf-lp-tuwi arthritic changes of the left hip. He has secondary issues of significant left sided weakness from a ruptured cranial aneurysm in the past. He will need outside consultation with a joint replacement specialist to discuss options for this patient once discharged. He can work with physical therapy to try to get him to ambulate safely he may have to use a platform-type walker just to use the right upper extremity for more balance control he can follow up with orthopedics and in particular Julius Campos MD as an outpatient. Consult Acknowledgment - Thank you for your consult request. Attending Review Statement Attending Statement Attending Statement: examined this patient
[2016-11-11] MEDS ORDERED: TYLENOL325 M1 PO (12:22)
[2016-11-11] MEDS ORDERED: PERCOCET 5-3251 EACH PO (12:23)
--- NOTE | 2016-11-11 12:28 | Patient Discharge Instructions ---
Discharge Instructions General Discharge Information You were seen/treated for: Left hip pain Special Instructions: Please follow-up with your primary care physician in one week of discharge Please follow-up with orthopedic Julius Campos MD as an outpatient after 1-2 weeks of discharge use a platform-type walker just to use the right upper extremity for more balance control Diet Continue normal diet: Yes Recommended Diet: Heart Healthy Activity Additional ACTIVITY Info: As tolerated with assistance Acute Coronary Syndrome Inclusion Criteria At DC or during hospital stay patient has or had the following: ACS DIAGNOSIS No Discharge Core Measures Meds if any: Prescribed or Continued at Discharge Meds if any: NOT Prescribed or Continued at Discharge Congestive Heart Failure Inclusion Criteria At DC or during hospital stay patient has or had the following: CHF DIAGNOSIS No Discharge Core Measures Meds if any: Prescribed or Continued at Discharge Meds if any: NOT Prescribed or Continued at Discharge Cerebrovascular accident Inclusion Criteria At DC or during hospital stay patient has or had the following: CVA/TIA Diagnosis No Discharge Core Measures Meds if any: Prescribed or Continued at Discharge Meds if any: NOT Prescribed or Continued at Discharge Venous thromboembolism Inclusion Criteria VTE Diagnosis No VTE Type NONE VTE Confirmed by (Test) NONE Discharge Core Measures - Per Current guidelines, there needs to be overlap - treatment for the first 5 days of Warfarin therapy. - If discharged on Warfarin prior to 5 days of - overlap therapy, the patient will need to be - assessed for post discharge needs including - *Post discharge parental anticoagulation - *Warfarin and/or parental anticoagulation education - *Follow up date to check INR post discharge At least 5 days overlap therapy as Inpatient No Meds if any: Prescribed or Continued at Discharge Note: Overlap Therapy is Warfarin and Anticoagulant Meds if any: NOT Prescribed or Continued at Discharge
--- NOTE | 2016-11-11 15:18 | RADIOLOGY REPORT ---
EXAMINATION: XR FOREARM, LEFT XR WRIST, LEFT CLINICAL INFORMATION: Pain and swelling. Fall. COMPARISON: None TECHNIQUE: AP and lateral views of the left forearm were obtained. 4 views of the left wrist were obtained. FINDINGS: Mildly impacted fracture of the distal radial metaphysis is demonstrated. The fracture is transversely oriented. Diffusely decreased bone mineral density. No other fracture or dislocation is demonstrated. The elbow joint appears congruent. No widening of the distal radial ulnar joint. The carpal arcs appear maintained. IMPRESSION: Impacted distal radial metaphyseal fracture. Diffusely decreased bone mineral density. No other discrete fracture demonstrated.
[2016-11-11 15:36] VITALS: BP 104/60
--- NOTE | 2016-11-11 16:50 | NUR ---
SPOKE WITH DR AUGIAR-STATED HE WAS BEING PAGED BY CHERYL, DOES NOT KNOW WHY-I EXPLAINED XRAY RESULTS (LW FRACTURE) AND HIS CONSULT NEEDED. HE STATED HE IS OUT OF THE HOSPITAL, AND TO JUST ORDER A WRIST SPLINT AND PUT ON PATIENT. GAVE INFORMATION TO DANCING TEACHER CHERYL.
--- NOTE | 2016-11-11 18:33 | PN- Att Addend ---
Attending Addendum Attending Brief Note Covering attending note Patient sitting in the chair receiving pastoral care and plain started his arm is swollen and tender, the x-ray showed an impacted distal radial metaphyseal fracture. Will notify orthopedic doctor of this finding because he had cleared him to go to rehabilitation from the hip point of view he might need immunization of that arm before he leaves tomorrow Current Medications Sig/Samm Start time Last Medication Dose Route Stop Time Status Admin Acetaminophen 650 MG Q8P PRN 11/09 2230 AC 11/11 PO 1700 Disulfiram 250 MG DAILY 11/10 1000 AC 11/11 PO 1043 Oxycodone/ 1 TAB Q6P PRN 11/11 1100 AC 11/11 Acetaminophen PO 1530 Oxycodone/ 1 TAB Q6 PRN 11/09 2230 DC 11/10 Acetaminophen PO 2047 Paroxetine HCl 20 MG DAILY 11/10 1000 AC 11/11 PO 1042 Pravastatin Sodium 40 MG 1700 11/10 1700 AC 11/11 PO 1656 Primidone 250 MG BID 11/09 2330 AC 11/11 PO 1043 Laboratory Tests 11/11/16 0640: Anion Gap 7, Estimated GFR > 60, BUN/Creatinine Ratio 21.7, CBC w Diff NO MAN DIFF REQ, RBC 3.63 L, MCV 95.6 H, MCH 31.8 H, RDW 14.4, MPV 7.4, Gran % 56.3, Lymphocytes % 31.7, Monocytes % 8.6, Eosinophils % 2.5, Basophils % 0.9, Absolute Granulocytes 4.1, Absolute Lymphocytes 2.3, Absolute Monocytes 0.6, Absolute Eosinophils 0.2, Absolute Basophils 0.1, PUBS MCHC 33.3 Vital Signs Date Time Temp Pulse Resp B/P Pulse O2 O2 Flow FiO2 Ox Delivery Rate 11/11 1536 97.8 96 20 104/60 95 Room Air Intake & Output 11/11 1600 Intake Total Output Total 440 Balance -440 Output, Urine 440 Patient 114 lb Weight
[2016-11-11 22:12] VITALS: BP 100/70
[2016-11-12 06:44] VITALS: BP 100/76
--- NOTE | 2016-11-12 08:36 | PN- Housestaff ---
Subjective Follow-up For: Left nondisplaced radial fracture left hip discomfort post a mechanical fall. left-sided weakness 2/2 brain aneurysm Subjective: patient has left wrist pain and swelling overnight, x ray was obtained that revealed nondisplaced left distal radius fracture, a splint was applied. patient was seen and examined this morning, pain in the left hip 6/10 no weakness above baseline and no numbness. patient denied chest pian, palpitation, abdominal pain. vital signs are stable. Review of Systems Constitutional: Reports: see HPI. Objective Last 24 Hrs of Vital Signs/I&O Vital Signs Date Time Temp Pulse Resp B/P Pulse O2 O2 Flow FiO2 Ox Delivery Rate 11/12 0644 97.8 80 20 100/76 95 11/11 2212 98.2 91 20 100/70 95 Room Air 11/11 1536 97.8 96 20 104/60 95 Room Air Intake & Output 11/12 1600 11/12 0800 11/12 0000 Intake Total 300 700 Output Total 350 925 Balance -50 -225 Intake, Oral 300 700 Output, Urine 350 925 Physical Exam General Appearance: Alert, Oriented X3, Cooperative, No Acute Distress Skin: No Rashes, No Breakdown, No Significant Lesion HEENT: Atraumatic, PERRLA, EOMI, Mucous Membr. moist/pink Neck: Supple Cardiovascular: Regular Rate, Normal S1, Normal S2, No Murmurs Lungs: Clear to Auscultation, Normal Air Movement Abdomen: Normal Bowel Sounds, Soft, No Tenderness, No Hepatospenomegaly, No Masses Neurological: Normal Gait, Normal Speech, Normal Tone, Sensation Intact, Cranial Nerves 3-12 NL, Reflexes 2+, left side upper and lower 3/5 Extremities: No Clubbing, No Cyanosis, No Edema, Normal Pulses Assessment/Plan Assessment: This is a 55-year-old male with a history of brain aneurysm with the left side nabil-plegia, hypertension. He also has a history of left hip fracture status post surgical intervention. Presented because of left sided hip pain post a mechanical fall. X-ray was negative for any fractures. Plan - Distal radial metaphyseal fractur * Overnight patient reported left wrist swelling and severe pain, x-ray was obtained that revealed nondisplaced distal radial metaphyseal fracture. Diffusely decreased bone mineral density. No other discrete fracture demonstrated * Wrist splint was applied, will maintain for 6 weeks significant dysplasia and [id number] arthritic changes of the left hip * Patient may need consultation with a joint replacement specialist as an outpatient Diet - Regular diet DVT prophylaxis-ALP S/Heparin CODE STATUS -Full code Waiting for placement Problem List: 1. Fracture of radius 2. Acquired dysplasia of left hip Pain Ratin Pain Location: Left arm Pain Goal: Pain 4 or less Pain Plan: Severe pain pathway Tomorrow's Labs & Rationales: None
--- NOTE | 2016-11-12 08:55 | PN- Orthopedic ---
Subjective Subjective: PATIENT COmplained of left wrist discomfort had xrays which showed nondisplaced left distal radius fracture splint applied will maintain for 6 weeks Objective Vital Signs and I&Os Vital Signs Date Time Temp Pulse Resp B/P Pulse O2 O2 Flow FiO2 Ox Delivery Rate 11/12 0644 97.8 80 20 100/76 95 11/11 2212 98.2 91 20 100/70 95 Room Air 11/11 1536 97.8 96 20 104/60 95 Room Air Intake & Output 11/12 1600 11/12 0000 11/11 1600 11/11 0000 Intake Total 300 700 100 300 Output Total 350 009 632 0629 400 Balance -50 -225 -440 -1000 -100 Intake, Oral 300 700 100 300 Output, Urine 350 780 848 7826 400 Patient 114 lb Weight Physical Exam: pain left distal radius no deformity xrays nondisplaced fracture Assessment/Plan Assessment/Plan left nondisplaced radius fracture will remain in splint for 6 weeks Core Measures/Miscellaneous Venous Thromboembolism VTE Risk Factors: Age > 40, Immobility, paresis VTE Contraindications: Abn Clotting Times (none) VTE Diagnosis: No VTE Type: NONE VTE Confirmed by (Test): NONE Beta Angela Is Beta Angela a Home Med? No Antibiotics Is Patient on Antibiotics? No Attending MD Review Statement Attending Statement Attending MD Statement: examined this patient
--- NOTE | 2016-11-12 13:32 | PN- Att Addend ---
Attending Addendum Attending Brief Note Covering attending note: Patient sitting in the chair of visit or at his bedside signs are stable no fever. The left wrist feels better with immobilizer. His hip is about the same. Arrangements for short-term rehabilitation continues as soon as bed is available patient will be transferred. Current Medications Sig/Samm Start time Last Medication Dose Route Stop Time Status Admin Acetaminophen 650 MG .STK-MED ONE 11/11 1657 DC PO 11/11 1658 Acetaminophen 650 MG Q8P PRN 11/09 2230 AC 11/11 PO 1700 Disulfiram 250 MG DAILY 11/10 1000 AC 11/12 PO 1025 Nicotine 14 MG DAILY 11/12 1000 AC 11/12 TOP 1102 Oxycodone/ 1 TAB Q6P PRN 11/11 1100 AC 11/11 Acetaminophen PO 2211 Paroxetine HCl 20 MG DAILY 11/10 1000 AC 11/12 PO 1025 Pravastatin Sodium 40 MG 1700 11/10 1700 AC 11/11 PO 1656 Primidone 250 MG BID 11/09 2330 AC 11/12 PO 1025 Vital Signs Date Time Temp Pulse Resp B/P Pulse O2 O2 Flow FiO2 Ox Delivery Rate 11/12 0644 97.8 80 20 100/76 95
[2016-11-12 14:56] VITALS: BP 106/60
[2016-11-12 21:44] VITALS: BP 110/58
[2016-11-13 06:42] VITALS: BP 98/64
--- NOTE | 2016-11-13 08:00 | PN- Housestaff ---
Subjective Follow-up For: left hip discomfort post a mechanical fall. left-sided weakness 2/2 brain aneurysm Subjective: Afebrile, alert and oriented. No acute overnight events reported. Patient reported significant improvement of his pain. His left arm has a splint placed. Patient is stable and will most likely be discharged to a short-term rehabilitation and instructed to follow up with orthopedic as an outpatient. Review of Systems Constitutional: Reports: no symptoms. Objective Last 24 Hrs of Vital Signs/I&O Vital Signs Date Time Temp Pulse Resp B/P Pulse O2 O2 Flow FiO2 Ox Delivery Rate 11/13 0642 98.0 76 18 98/64 96 Room Air 11/12 2144 98.4 87 20 110/58 97 Room Air 11/12 1456 98.4 90 20 106/60 97 Room Air Intake & Output 11/13 1600 11/13 0800 11/13 0000 Intake Total 120 240 Output Total 950 Balance -830 240 Intake, Oral 120 240 Output, Urine 950 Physical Exam General Appearance: Alert, Oriented X3, Cooperative, No Acute Distress Skin: No Rashes HEENT: Atraumatic, PERRLA, EOMI, Mucous Membr. moist/pink Cardiovascular: Regular Rate, Normal S1, Normal S2, No Murmurs Lungs: Clear to Auscultation Abdomen: Normal Bowel Sounds, Soft, No Tenderness Neurological: Normal Speech, rt side 5/5 and left side 3/5 Extremities: No Clubbing, No Cyanosis, No Edema Current Medications: Current Medications Sig/Samm Start time Last Medication Dose Route Stop Time Status Admin Acetaminophen 650 MG Q8P PRN 11/09 2230 AC 11/11 PO 1700 Disulfiram 250 MG DAILY 11/10 1000 AC 11/13 PO 0927 Nicotine 14 MG DAILY 11/12 1000 AC 11/13 TOP 0927 Oxycodone/ 1 TAB Q6P PRN 11/11 1100 AC 11/12 Acetaminophen PO 2109 Paroxetine HCl 20 MG DAILY 11/10 1000 AC 11/13 PO 0927 Pravastatin Sodium 40 MG 1700 11/10 1700 AC 11/12 PO 1742 Primidone 250 MG BID 11/09 2330 AC 11/13 PO 0927 Senna/Docusate Sodium 2 TAB DAILY PRN 11/13 0430 AC PO Assessment/Plan Assessment: This is a 55-year-old male with a history of brain aneurysm with the left side nabil-plegia, hypertension. He also has a history of left hip fracture status post surgical intervention. Presented because of left sided hip pain post a mechanical fall. X-ray was negative for any fractures. He then complained of left wrist pain where x-ray showed radial metaphyseal fractur Plan - Distal radial metaphyseal fractur * 2 days ago patient reported left wrist swelling and severe pain, x-ray was obtained that revealed nondisplaced distal radial metaphyseal fracture. Diffusely decreased bone mineral density. No other discrete fracture demonstrated * Wrist splint was applied, will maintain for 6 weeks * Patient is stable and will most likely be discharged later today to a short- term rehabilitation * Patient will be instructed to follow up with orthopedic as an outpatient significant dysplasia and [id number] arthritic changes of the left hip * Patient may need consultation with a joint replacement specialist as an outpatient Diet: Regular diet DVT prophylaxis: ALP S/Heparin Full code Problem List: 1. Fall Pain Ratin Pain Location: Left wrist and left hip Pain Goal: Remain pain free Pain Plan: See assessment and plan Tomorrow's Labs & Rationales: See assessment and plan
--- NOTE | 2016-11-13 09:33 | PN- Att Addend ---
Attending Addendum Attending Brief Note Patient complains of left hip and left-wrist discomfort. General Appearance: Alert, No Acute Distress Skin: Grossly normal HEENT: PEERLA Neck: Supple, No JVD Cardiovascular: Regular Rate, Normal S1, Normal S2, No Murmurs Lungs: Clear to Auscultation, Normal Air Movement Abdomen: Normal Bowel Sounds, Soft, No Tenderness Neurological: Left-sided weakness Extremities: No Clubbing, No Cyanosis, No Edema Vascular: Normal Pulses Assessment 51-year-old with history of brain aneurysm with left-sided weakness, hypertension and history of left hip fracture with surgery presenting after a mechanical fall. X-ray negative for fracture, except for subluxation. Conservative treatment with pain meds and physical therapy for possible placement to rehabilitation. X-ray of his left wrist showed fracture distal radius. He has a splint in place and will be followed by orthopedic is as outpatient. Plan Continue pain meds Continue home meds Placement at [facility] Current Medications Sig/Samm Start time Last Medication Dose Route Stop Time Status Admin Acetaminophen 650 MG Q8P PRN 11/09 2230 AC 11/11 PO 1700 Disulfiram 250 MG DAILY 11/10 1000 AC 11/13 PO 0927 Nicotine 14 MG DAILY 11/12 1000 AC 11/13 TOP 0927 Oxycodone/ 1 TAB Q6P PRN 11/11 1100 AC 11/12 Acetaminophen PO 2109 Paroxetine HCl 20 MG DAILY 11/10 1000 AC / PO 0927 Pravastatin Sodium 40 MG 1700 11/10 1700 AC 04/02 PO 1742 Primidone 250 MG BID 11/09 2330 AC 11/13 PO 0927 Senna/Docusate Sodium 2 TAB DAILY PRN 11/13 0430 AC PO Vital Signs Date Time Temp Pulse Resp B/P Pulse O2 O2 Flow FiO2 Ox Delivery Rate 11/13 0642 98.0 76 18 98/64 96 Room Air 11/12 2144 98.4 87 20 110/58 97 Room Air 11/12 1456 98.4 90 20 106/60 97 Room Air
[2016-11-13 15:47] VITALS: BP 102/60
[2016-11-13 16:22] VITALS: BP 102/60
== END 2016-11-13 16:35 | DRG 563 ==
LOC: ENRESERVDT → ENRESERVTM → ERH 15:30 → 2NB 19:59 → ERHI 19:59 → 2NB 22:53
PROVIDERS: Internal Medicine; Physician Assistant; Student in an Organized Health Care Education/Training Program; ADMIT Internal Medicine
DX: S52.592A Other fractures of lower end of left radius, initial encounter for closed fracture (principal); E44.0 Moderate protein-calorie malnutrition; E87.1 Hypo-osmolality and hyponatremia; G81.94 Hemiplegia, unspecified affecting left nondominant side; Z68.1 Body mass index [BMI] 19.9 or less, adult; I10 Essential (primary) hypertension; F10.20 Alcohol dependence, uncomplicated; G40.909 Epilepsy, unspecified, not intractable, without status epilepticus; Z87.820 Personal history of traumatic brain injury; M16.12 Unilateral primary osteoarthritis, left hip; F17.200 Nicotine dependence, unspecified, uncomplicated; E78.5 Hyperlipidemia, unspecified; W18.30XA Fall on same level, unspecified, initial encounter; Y93.01 Activity, walking, marching and hiking; Z91.81 History of falling
CPT/HCPCS: 2NSBP; 36415; 73090-LT; 73110-LT; 73552; 82436; 93005; 93010; 97110-GO; 97116-GO; 97162-GP; 97530-GO